=== PATIENT | male | born 1955 | race Two or more races ===

== ENCOUNTER 2017-10-07 15:05 | Inpatient (IN) | payer OTHER ==
[2017-10-07] MEDS ORDERED: MAGNESIUM CITRATE 300 ML BOTTLE PO PRN (18:13)
[2017-10-07] MEDS ORDERED: P-EPHED 60MG/TRIPROLIDI 2.5MG TABLET PO PRN (18:13)
[2017-10-07] MEDS ORDERED: LOPERAMIDE HCL 2 MG CAPSULE PO PRN (18:13)
[2017-10-07] MEDS ORDERED: MENTHOL/PHENOL 1 EACH UD MM PRN (18:13)
[2017-10-07] MEDS ORDERED: MAG HYDROX/AL HYDROX/SIMETH 30 ML UNIT-DOSE CUP PO PRN (18:13)
[2017-10-07] MEDS ORDERED: IBUPROFEN 400 MG TABLET (FP) PO PRN (18:13)
[2017-10-07] MEDS ORDERED: guaiFENesin/D-METHORPHAN HB 10 ML UNIT-DOSE CUPS PO PRN (18:13)
[2017-10-07] MEDS ORDERED: ACETAMINOPHEN 325 MG TABLET (FP) PO PRN (18:13)
[2017-10-07] MEDS ORDERED: MAGNESIUM HYDROX 2400MG/30ML ORAL SUSPENSION 30 ML CUP PO PRN (18:13)
[2017-10-07] MEDS ORDERED: hydrOXYzine PAMOATE 25 MG CAPSULE (FP) PO PRN (18:19)
--- NOTE | 2017-10-07 18:20 | HP ---
[facility] Rehab Assess/Revision - Admission History Admitted to Rehab from: [facility] Date of Admission to Rehab: 10/07/17 - Findings Detox History & Physical reviewed: Yes Concur with findings: Yes Inpatient Rehab Admission - Initial Determination Are CD services needed?: Yes Free of communicable disease: Yes Not in need of hospitalization: Yes - Rehab Admission Criteria Previous failed treatment: Yes Poor recovery environment: Yes Comorbidities: Yes Lacks judgement: Yes Patient is meeting Inpatient Rehab admission criteria:: Yes
[2017-10-07] MEDS ORDERED: INSULIN (NOVOLOG) ASPART 100 UNITS/ML 10ML VIAL SQ ONE (20:57)
[2017-10-07] MEDS: THIAMINE HCL 100 MG TABLET (FP) PO SCH (21:12)
[2017-10-08] MEDS ORDERED: INSULIN SLIDING SCALE (NOVOLOG) 1 VIAL SQ ONE ×2 (06:08→16:58)
[2017-10-08] MEDS: metFORMIN HCL 500 MG TABLET (FP) PO SCH ×2 (06:09→16:56)
[2017-10-08] MEDS: INSULIN SLIDING SCALE (NOVOLOG) 1 VIAL SQ SCH ×2 (06:11→16:59)
[2017-10-08] MEDS: PRENATAL VITAMINS W/ FOLIC ACID TABLET (FP) PO SCH (09:38)
[2017-10-08] MEDS: metoPROLOL SUCCINATE 25 MG TAB.SR.24H (FP) PO SCH (09:38)
--- NOTE | 2017-10-08 11:09 | HP ---
Psychiatrist Admission - Data Date of interview: 10/08/17 Admission source: 3N Identifying data: This is the first 5N inpatient rehabilitation admission for this 61 year old [place]-born male who is ,a father of three,homeless, unemployed and supported on food stamps. Medical History: Hypertension and IDDM Psychiatric History: Patient denies history of treatment, reports he just sad due to his current situation (being homeless and unemployed). Physical/Sexual Abuse/Trauma History: Patient denies history of sexual,physical and verbal abuse. Vital Signs: Vital Signs - 24 hr 10/08/17 10/08/17 00:30 06:44 Temperature 98.3 F Pulse Rate 83 Respiratory 18 20 Rate Blood Pressure 142/92 Allergies/Adverse Reactions: Allergies Allergy/AdvReac Type Severity Reaction Status Date / Time No Known Allergies Allergy Verified 10/03/17 11:11 Concur with the findings of this exam: Yes - Substance Abuse/Tx History Hx Alcohol Use: Yes Hx Substance Use: No Substance Use Type: Alcohol (first ) Mental Status Exam - Mental Status Exam Alert and Oriented to: Time, Place, Person Cognitive Function: Grossly Intact Patient Appearance: Well Groomed Mood: Sad Affect: Appropriate, Mood Congruent Patient Behavior: Appropriate, Cooperative Speech Pattern: Appropriate Voice Loudness: Normal Thought Process: Intact, Goal Oriented Thought Disorder: Not Present Hallucinations: Denies Suicidal Ideation: Denies Homicidal Ideation: Denies Insight/Judgement: Fair Sleep: Fair Appetite: Fair Muscle strength/Tone: Normal Gait/Station: Normal Psychiatric Findings - Problem List ([place] 1, 2,3) (1) Alcohol dependence Current Visit: Yes Status: Acute (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
[2017-10-08] MEDS ORDERED: PNEUMOC 13-VAL CONJ-DIP CRM/PF 0.5 ML DISP.SYRIN IM ONE (12:00)
[2017-10-08] MEDS ORDERED: PNEUMOCOCCAL 23 VACCINE 0.5 ML VIAL IM ONE (12:00)
[2017-10-08] MEDS: MELATONIN 5 MG TABLETS PO PRN (21:12)
[2017-10-08] MEDS: THIAMINE HCL 100 MG TABLET (FP) PO SCH (21:12)
[2017-10-09] MEDS: INSULIN SLIDING SCALE (NOVOLOG) 1 VIAL SQ SCH ×2 (06:36→16:47)
[2017-10-09] MEDS: metFORMIN HCL 500 MG TABLET (FP) PO SCH ×2 (06:36→16:47)
[2017-10-09] MEDS: PRENATAL VITAMINS W/ FOLIC ACID TABLET (FP) PO SCH (09:40)
[2017-10-09] MEDS: metoPROLOL SUCCINATE 25 MG TAB.SR.24H (FP) PO SCH (09:40)
[2017-10-09] MEDS: THIAMINE HCL 100 MG TABLET (FP) PO SCH (21:17)
[2017-10-09] MEDS: MELATONIN 5 MG TABLETS PO PRN (21:18)
[2017-10-10] MEDS: metFORMIN HCL 500 MG TABLET (FP) PO SCH ×2 (06:24→16:46)
[2017-10-10] MEDS: INSULIN SLIDING SCALE (NOVOLOG) 1 VIAL SQ SCH ×2 (06:24→16:47)
[2017-10-10] MEDS: PRENATAL VITAMINS W/ FOLIC ACID TABLET (FP) PO SCH (09:31)
[2017-10-10] MEDS: metoPROLOL SUCCINATE 25 MG TAB.SR.24H (FP) PO SCH (09:31)
[2017-10-10] MEDS: THIAMINE HCL 100 MG TABLET (FP) PO SCH (21:03)
[2017-10-11] MEDS: INSULIN SLIDING SCALE (NOVOLOG) 1 VIAL SQ SCH ×2 (06:15→16:51)
[2017-10-11] MEDS: metFORMIN HCL 500 MG TABLET (FP) PO SCH ×2 (06:15→16:47)
[2017-10-11] MEDS: PRENATAL VITAMINS W/ FOLIC ACID TABLET (FP) PO SCH (09:39)
[2017-10-11] MEDS: metoPROLOL SUCCINATE 25 MG TAB.SR.24H (FP) PO SCH (09:39)
[2017-10-11] MEDS ORDERED: INSULIN SLIDING SCALE (NOVOLOG) 1 VIAL SQ ONE (16:49)
[2017-10-11] MEDS: MELATONIN 5 MG TABLETS PO PRN (21:02)
[2017-10-11] MEDS: THIAMINE HCL 100 MG TABLET (FP) PO SCH (21:02)
[2017-10-12] MEDS: metFORMIN HCL 500 MG TABLET (FP) PO SCH ×2 (06:30→16:38)
[2017-10-12] MEDS: INSULIN SLIDING SCALE (NOVOLOG) 1 VIAL SQ SCH ×2 (06:48→16:38)
[2017-10-12] MEDS ORDERED: INSULIN (NOVOLOG) ASPART 100 UNITS/ML 10ML VIAL ONE (06:51)
[2017-10-12] MEDS: PRENATAL VITAMINS W/ FOLIC ACID TABLET (FP) PO SCH (09:37)
[2017-10-12] MEDS: metoPROLOL SUCCINATE 25 MG TAB.SR.24H (FP) PO SCH (09:37)
[2017-10-12] MEDS: THIAMINE HCL 100 MG TABLET (FP) PO SCH (21:05)
[2017-10-13] MEDS: INSULIN SLIDING SCALE (NOVOLOG) 1 VIAL SQ SCH ×2 (05:59→16:44)
[2017-10-13] MEDS: metFORMIN HCL 500 MG TABLET (FP) PO SCH ×2 (06:00→16:41)
[2017-10-13] MEDS: metoPROLOL SUCCINATE 25 MG TAB.SR.24H (FP) PO SCH (09:25)
[2017-10-13] MEDS: PRENATAL VITAMINS W/ FOLIC ACID TABLET (FP) PO SCH (09:25)
[2017-10-13] MEDS: THIAMINE HCL 100 MG TABLET (FP) PO SCH (21:08)
[2017-10-13] MEDS: MELATONIN 5 MG TABLETS PO PRN (21:09)
[2017-10-14] MEDS: metFORMIN HCL 500 MG TABLET (FP) PO SCH ×2 (06:19→17:49)
[2017-10-14] MEDS: INSULIN SLIDING SCALE (NOVOLOG) 1 VIAL SQ SCH ×2 (07:13→17:05)
[2017-10-14] MEDS: metoPROLOL SUCCINATE 25 MG TAB.SR.24H (FP) PO SCH (09:41)
[2017-10-14] MEDS: PRENATAL VITAMINS W/ FOLIC ACID TABLET (FP) PO SCH (09:41)
[2017-10-14] MEDS ORDERED: INSULIN (NOVOLOG) ASPART 100 UNITS/ML 10ML VIAL ONE (17:03)
[2017-10-14] MEDS: THIAMINE HCL 100 MG TABLET (FP) PO SCH (21:19)
[2017-10-14] MEDS: MELATONIN 5 MG TABLETS PO PRN (21:19)
[2017-10-15] MEDS: INSULIN SLIDING SCALE (NOVOLOG) 1 VIAL SQ SCH ×2 (06:05→16:36)
[2017-10-15] MEDS: metFORMIN HCL 500 MG TABLET (FP) PO SCH ×2 (06:05→16:36)
[2017-10-15] MEDS: PRENATAL VITAMINS W/ FOLIC ACID TABLET (FP) PO SCH (09:34)
[2017-10-15] MEDS: metoPROLOL SUCCINATE 25 MG TAB.SR.24H (FP) PO SCH (09:34)
[2017-10-15] MEDS: THIAMINE HCL 100 MG TABLET (FP) PO SCH (21:08)
[2017-10-15] MEDS: MELATONIN 5 MG TABLETS PO PRN (21:08)
[2017-10-16] MEDS: metFORMIN HCL 500 MG TABLET (FP) PO SCH ×2 (06:24→16:38)
[2017-10-16] MEDS: INSULIN SLIDING SCALE (NOVOLOG) 1 VIAL SQ SCH ×2 (06:25→16:41)
[2017-10-16] MEDS: PRENATAL VITAMINS W/ FOLIC ACID TABLET (FP) PO SCH (09:39)
[2017-10-16] MEDS: metoPROLOL SUCCINATE 25 MG TAB.SR.24H (FP) PO SCH (09:40)
[2017-10-16] MEDS ORDERED: INSULIN SLIDING SCALE (NOVOLOG) 1 VIAL SQ ONE (16:42)
[2017-10-16] MEDS: THIAMINE HCL 100 MG TABLET (FP) PO SCH (21:06)
[2017-10-16] MEDS: MELATONIN 5 MG TABLETS PO PRN (21:06)
[2017-10-17] MEDS: metFORMIN HCL 500 MG TABLET (FP) PO SCH ×2 (05:59→16:37)
[2017-10-17] MEDS: INSULIN SLIDING SCALE (NOVOLOG) 1 VIAL SQ SCH ×2 (05:59→16:40)
[2017-10-17] MEDS ORDERED: INSULIN (NOVOLOG) ASPART 100 UNITS/ML 10ML VIAL ONE (06:08)
[2017-10-17] MEDS: metoPROLOL SUCCINATE 25 MG TAB.SR.24H (FP) PO SCH (09:54)
[2017-10-17] MEDS: PRENATAL VITAMINS W/ FOLIC ACID TABLET (FP) PO SCH (09:54)
[2017-10-17] MEDS ORDERED: INSULIN SLIDING SCALE (NOVOLOG) 1 VIAL SQ ONE (16:40)
[2017-10-17] MEDS: MELATONIN 5 MG TABLETS PO PRN (21:07)
[2017-10-17] MEDS: THIAMINE HCL 100 MG TABLET (FP) PO SCH (21:07)
[2017-10-18] MEDS: metFORMIN HCL 500 MG TABLET (FP) PO SCH ×2 (06:13→16:39)
[2017-10-18] MEDS: INSULIN SLIDING SCALE (NOVOLOG) 1 VIAL SQ SCH ×2 (06:48→16:46)
[2017-10-18] MEDS: metoPROLOL SUCCINATE 25 MG TAB.SR.24H (FP) PO SCH (09:41)
[2017-10-18] MEDS: PRENATAL VITAMINS W/ FOLIC ACID TABLET (FP) PO SCH (09:41)
[2017-10-18] MEDS ORDERED: INSULIN SLIDING SCALE (NOVOLOG) 1 VIAL SQ ONE (16:41)
[2017-10-18] MEDS: MELATONIN 5 MG TABLETS PO PRN (21:10)
[2017-10-18] MEDS: THIAMINE HCL 100 MG TABLET (FP) PO SCH (21:10)
[2017-10-19] MEDS: metFORMIN HCL 500 MG TABLET (FP) PO SCH ×2 (06:08→16:39)
[2017-10-19] MEDS: INSULIN SLIDING SCALE (NOVOLOG) 1 VIAL SQ SCH ×2 (06:49→16:42)
[2017-10-19] MEDS: PRENATAL VITAMINS W/ FOLIC ACID TABLET (FP) PO SCH (09:48)
[2017-10-19] MEDS: metoPROLOL SUCCINATE 25 MG TAB.SR.24H (FP) PO SCH (09:48)
[2017-10-19] MEDS ORDERED: INSULIN (NOVOLOG) ASPART 100 UNITS/ML 10ML VIAL ONE (16:44)
[2017-10-19] MEDS: THIAMINE HCL 100 MG TABLET (FP) PO SCH (21:03)
[2017-10-19] MEDS: MELATONIN 5 MG TABLETS PO PRN (21:03)
[2017-10-20] MEDS: metFORMIN HCL 500 MG TABLET (FP) PO SCH ×2 (06:05→16:38)
[2017-10-20] MEDS: INSULIN SLIDING SCALE (NOVOLOG) 1 VIAL SQ SCH ×2 (07:35→16:44)
[2017-10-20] MEDS: PRENATAL VITAMINS W/ FOLIC ACID TABLET (FP) PO SCH (09:47)
[2017-10-20] MEDS: metoPROLOL SUCCINATE 25 MG TAB.SR.24H (FP) PO SCH (09:48)
[2017-10-20 11:12] VITALS: PULSE 78
[2017-10-20] MEDS ORDERED: INSULIN SLIDING SCALE (NOVOLOG) 1 VIAL SQ ONE (16:40)
[2017-10-20] MEDS: MELATONIN 5 MG TABLETS PO PRN (21:06)
[2017-10-20] MEDS: THIAMINE HCL 100 MG TABLET (FP) PO SCH (21:06)
[2017-10-21] MEDS: metFORMIN HCL 500 MG TABLET (FP) PO SCH (06:18)
[2017-10-21 06:51] VITALS: BP 156/79; TEMP 98.1
[2017-10-21] MEDS: INSULIN SLIDING SCALE (NOVOLOG) 1 VIAL SQ SCH (07:45)
--- NOTE | 2017-10-21 09:38 | PN ---
Psychiatric Progress Note Vital Signs: Vital Signs Period Temp Pulse Resp BP Sys/Nettles Pulse Ox Last 24 Hr 98.1 F 78-78 17-18 149-156/79-94 Date of Session: 10/21/17 Chief Complaint:: discharge visit HPI: HTN, DM medically managed. Current Medications: Active Medications Generic Name Dose Route Start Last Admin Trade Name Freq PRN Reason Stop Dose Admin Acetaminophen 650 mg 10/07/17 18:13 Tylenol - PO Q4H PRN FEVER Al Hydroxide/Mg Hydroxide 30 ml 10/07/17 18:13 Mylanta Oral Suspension - PO Q6H PRN DYSPEPSIA Eucalyptus/Menthol/Phenol/Sorbitol 1 each 10/07/17 18:13 Cepastat Lozenge - MM Q4H PRN SORE THROAT Guaifenesin 10 ml 10/07/17 18:13 Robitussin Dm - PO Q6H PRN COUGH Hydroxyzine Pamoate 25 mg 10/07/17 18:19 Vistaril - PO Q4H PRN AGITATION Ibuprofen 400 mg 10/07/17 18:13 Motrin - PO Q6H PRN Pain Level 4-6 Insulin Aspart 1 vial 10/08/17 07:00 10/21/17 07:45 Novolog Vial Sliding Scale - SQ 4 units BIDAC TASHA Administration Protocol Loperamide HCl 4 mg 10/07/17 18:13 Imodium - PO Q6H PRN DIARRHEA Magnesium Citrate 300 ml 10/07/17 18:13 Citroma - PO Q48H PRN CONSTIPATION Magnesium Hydroxide 30 ml 10/07/17 18:13 Milk Of Magnesia - PO DAILY PRN CONSTIPATION Melatonin 5 mg 10/07/17 22:00 10/20/17 21:06 Melatonin PO 5 mg HS PRN Administration INSOMNIA Metformin HCl 1,000 mg 10/08/17 07:00 10/21/17 06:18 Glucophage - PO 1,000 mg BIDAC TASHA Administration Metoprolol Succinate 25 mg 10/08/17 10:00 10/20/17 09:48 Toprol Xl - PO 25 mg DAILY TASHA Administration Multivit/Folic Acid/Iron 1 tab 10/08/17 10:00 10/20/17 09:47 Vitamins (Sjr) - PO 1 tab DAILY TASHA Administration Pseudoephedrine/Triprolidine 1 combo 10/07/17 18:13 Actifed - PO TID PRN NASAL CONGESTION Thiamine HCl 100 mg 10/07/17 22:00 10/20/17 21:06 Vitamin B1 - PO 100 mg HS TASHA Administration Current Side Effect: No Lab tests ordered: No Lab tests reviewed: Yes Provider note:: Patient has completed treatment today and met his identified goals, will continue to address his issues at [facility]. He gained insights into his addiction and motivated to continue maintain abstinence and stay away from "people, places and things". . Patient was encouraged to utilize supports available to prevent relapses, patient is stable for discharge today. Total face to face time:: 15 Mental Status Exam - Mental Status Exam Alert and Oriented to: Time, Place, Person Cognitive Function: Good Patient Appearance: Well Groomed Mood: Hopeful Affect: Appropriate, Mood Congruent Patient Behavior: Appropriate, Cooperative Speech Pattern: Clear, Appropriate Voice Loudness: Normal Thought Process: Intact, Goal Oriented Thought Disorder: Not Present Hallucinations: Denies Suicidal Ideation: Denies Homicidal Ideation: Denies Insight/Judgement: Fair Sleep: Fair Appetite: Fair Muscle strength/Tone: Normal Gait/Station: Normal Psychiatric Treatment Plan - Problem List (1) Alcohol dependence Current Visit: Yes (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
[2017-10-21] MEDS: metoPROLOL SUCCINATE 25 MG TAB.SR.24H (FP) PO SCH (09:47)
[2017-10-21] MEDS: PRENATAL VITAMINS W/ FOLIC ACID TABLET (FP) PO SCH (09:47)
== END 2017-10-21 11:05 | disposition home or self-care (01) | DRG 772 ==
LOC: YASAS 15:05 → Y5N 15:07
PROVIDERS: ADMIT Psychiatry & Neurology Psychiatry; ATTEND Psychiatry & Neurology Psychiatry
PROC: HZ42ZZZ Group Counseling for Substance Abuse Treatment, Cognitive-Behavioral (ICD-10-PCS; principal; 2017-10-07)
DX: F10.24 Alcohol dependence with alcohol-induced mood disorder (principal); I10 Essential (primary) hypertension; E11.9 Type 2 diabetes mellitus without complications; Z79.4 Long term (current) use of insulin; Z79.84 Long term (current) use of oral hypoglycemic drugs
CPT/HCPCS: 82962; 90732; G0009

== ENCOUNTER 2024-10-29 21:24 | Inpatient (IN) | payer OTHER ==
[2024-10-29 22:08] VITALS: BMI 29.7
[2024-10-29] MEDS ORDERED: BISMUTH SUBSALICYLATE 524 MG/30 ML PO PRN (23:51)
[2024-10-29] MEDS ORDERED: IBUPROFEN 400 MG TABLET (FP) PO PRN (23:51)
[2024-10-29] MEDS ORDERED: BENZOCAINE/MENTHOL (CHLORASEPTIC ) LOZENGE MM PRN (23:51)
[2024-10-29] MEDS ORDERED: ACETAMINOPHEN 325 MG TABLET (FP) PO PRN (23:51)
[2024-10-29] MEDS ORDERED: NALOXONE (NARCAN) HCL 4 MG/0.1 ML SPRAY NS PRN (23:51)
[2024-10-29] MEDS ORDERED: DICYCLOMINE HCL 10 MG CAPSULE PO PRN (23:51)
[2024-10-29] MEDS ORDERED: ONDANSETRON *ODT* 4 MG TABLET SL PRN (23:51)
[2024-10-29] MEDS ORDERED: guaiFENesin 600 MG TABLET.ER (FP) PO PRN (23:51)
[2024-10-29] MEDS ORDERED: POLYETHYLENE GLYCOL (HEALTHYLAX) 3350 17 GM PACKET PO PRN (23:51)
[2024-10-29] MEDS ORDERED: MAG HYDROX/AL HYDROX/SIMETH 30 ML UNIT-DOSE CUP PO PRN (23:51)
[2024-10-29] MEDS ORDERED: MAGNESIUM HYDROX 2400MG/30ML ORAL SUSPENSION 30 ML CUP PO PRN (23:51)
[2024-10-29] MEDS ORDERED: LOPERAMIDE HCL 2 MG CAPSULE PO PRN (23:51)
[2024-10-29] MEDS ORDERED: BENZONATATE 200 MG CAPSULE PO PRN (23:51)
[2024-10-30] MEDS: INSULIN ASPART SLIDING SCALE (NOVOLOG) 1 VIAL SQ ONE (01:13)
[2024-10-30] MEDS: IBUPROFEN 600 MG TABLET (FP) PO PRN (01:37)
[2024-10-30] MEDS: METHOCARBAMOL 500 MG TABLET PO PRN (01:38)
[2024-10-30] MEDS: hydrOXYzine PAMOATE 25 MG CAPSULE (FP) PO PRN (01:38)
[2024-10-30] MEDS: INSULIN ASPART SLIDING SCALE (NOVOLOG) 1 VIAL SQ SCH (06:26)
[2024-10-30] MEDS ORDERED: LORazepam 1 MG TABLET PO PRN (08:18)
[2024-10-30] MEDS: levETIRAcetam 500 MG TABLET (FP) PO SCH (10:13)
[2024-10-30] MEDS: metoPROLOL SUCCINATE 25 MG TAB.SR.24H (FP) PO SCH (10:13)
[2024-10-30] MEDS: PRENATAL VITAMINS W/ FOLIC ACID TABLET (FP) PO SCH (10:14)
[2024-10-30] MEDS: metFORMIN HCL 500 MG TABLET (FP) PO SCH (10:14)
[2024-10-30] MEDS: LORazepam 2 MG TABLET PO SCH (10:14)
[2024-10-30] MEDS: HYDROCHLOROTHIAZIDE 25 MG TABLET (FP) PO SCH (12:15)
[2024-10-30] MEDS: amLODIPine BESYLATE 10 MG TABLET (FP) PO SCH (12:15)
[2024-10-30] MEDS: NALTREXONE HCL 50 MG TABLET PO ONE (12:17)
[2024-10-30 12:38] LABS: CHLORIDE 103 mmol/L (98-107); POTASSIUM 4.4 mmol/L (3.5-5.1); SODIUM 140 mmol/L (136-145)
[2024-10-30 12:51] LABS: CALCIUM 9.1 mg/dL (8.5-10.1)
[2024-10-30 12:55] LABS: ALBUMIN 3.6 g/dl (3.4-5.0); ANION GAP 8 mmol/L (4-13); BLOOD UREA NITROGEN 13.4 mg/dL (7-18); CO2 29 mmol/L (21-32); GLUCOSE,RANDOM 168 mg/dL (74-106)
[2024-10-30 12:58] LABS: SGPT/ALT 40 U/L (13-61)
[2024-10-30 12:59] LABS: ALK PHOS 81 U/L (45-117); BILIRUBIN,TOTAL 0.8 mg/dL (0.2-1); CREATININE 1.3 mg/dL (0.55-1.3); SGOT/AST 57 U/L (15-37)
[2024-10-30 13:00] LABS: TOT PROT 6.8 g/dl (6.4-8.2)
[2024-10-30 13:39] LABS: HEMOGLOBIN 13.1 g/dL (13.7-17.5); MCHC 33.6 g/dl (32.3-36.5); MEAN CELL VOLUME 83.5 fl (79.0-92.2); MEAN PLT VOLUME 9.7 fl (9.4-12.4); PLATELET COUNT 253 x10^3/uL (163-337); RDW 14.5 % (12.2-16.4)
[2024-10-30] MEDS: MELATONIN 5 MG TABLETS PO SCH (22:45)
[2024-10-30] MEDS: THIAMINE 100 MG TABLET PO SCH (22:45)
[2024-10-31] MEDS: NALTREXONE HCL 50 MG TABLET PO SCH (10:31)
[2024-11-01] MEDS: LORazepam 1 MG TABLET PO SCH (05:45)
[2024-11-02] MEDS ORDERED: LORazepam 0.5 MG TABLET PO PRN
[2024-11-02] MEDS: LORazepam 0.5 MG TABLET PO SCH (05:40)
[2024-11-03] MEDS: LORazepam 0.5 MG TABLET PO ONE (05:48)
[2024-11-03] MEDS ORDERED: INSULIN ASPART SLIDING SCALE (NOVOLOG) 1 VIAL SQ ONE (07:34)
[2024-11-03 08:58] VITALS: BP 152/100; PULSE 103; RESP 20; TEMP 97.5
== END 2024-11-03 13:32 | disposition other institution (70) | DRG 775 ==
LOC: YASAS 21:24 → Y3N 10-30 00:50
PROVIDERS: ADMIT Allergy & Immunology; ATTEND Allergy & Immunology
PROC: HZ2ZZZZ Detoxification Services for Substance Abuse Treatment (ICD-10-PCS; principal; 2024-10-30)
DX: F10.230 Alcohol dependence with withdrawal, uncomplicated (principal); I10 Essential (primary) hypertension; E11.9 Type 2 diabetes mellitus without complications; Z79.84 Long term (current) use of oral hypoglycemic drugs; Z59.00 Homelessness unspecified; Z56.0 Unemployment, unspecified
CPT/HCPCS: 36415; 80053; 80305; 80307; 82962; 85027; 86593; 86780; 87811; 93005; 93010

== ENCOUNTER 2024-11-03 13:54 | Inpatient (IN) | payer OTHER ==
[2024-11-03] MEDS ORDERED: LOPERAMIDE HCL 2 MG CAPSULE PO PRN (16:35)
[2024-11-03] MEDS ORDERED: NALOXONE HCL 0.4 MG/ML VIAL IVPUSH PRN (16:35)
[2024-11-03] MEDS ORDERED: guaiFENesin 600 MG TABLET.ER (FP) PO PRN (16:35)
[2024-11-03] MEDS ORDERED: BENZOCAINE/MENTHOL (CHLORASEPTIC ) LOZENGE MM PRN (16:35)
[2024-11-03] MEDS ORDERED: NALOXONE (NARCAN) HCL 4 MG/0.1 ML SPRAY NS PRN (16:35)
[2024-11-03] MEDS ORDERED: IBUPROFEN 400 MG TABLET (FP) PO PRN (16:35)
[2024-11-03] MEDS ORDERED: ACETAMINOPHEN 325 MG TABLET (FP) PO PRN (16:35)
[2024-11-03] MEDS ORDERED: BENZONATATE 200 MG CAPSULE PO PRN (16:35)
[2024-11-03] MEDS: INSULIN ASPART SLIDING SCALE (NOVOLOG) 1 VIAL SQ SCH (17:13)
[2024-11-03] MEDS: metFORMIN HCL 500 MG TABLET (FP) PO SCH (17:14)
[2024-11-03] MEDS: hydrOXYzine PAMOATE 25 MG CAPSULE (FP) PO PRN (17:30)
[2024-11-03] MEDS: MELATONIN 5 MG TABLETS PO SCH (21:10)
[2024-11-03] MEDS: levETIRAcetam 500 MG TABLET (FP) PO SCH (21:13)
[2024-11-03] MEDS: THIAMINE 100 MG TABLET PO SCH (21:13)
[2024-11-04] MEDS: MAG HYDROX/AL HYDROX/SIMETH 30 ML UNIT-DOSE CUP PO PRN (06:03)
[2024-11-04] MEDS ORDERED: INSULIN ASPART SLIDING SCALE (NOVOLOG) 1 VIAL SQ SCH (07:00)
[2024-11-04] MEDS: PRENATAL VITAMINS W/ FOLIC ACID TABLET (FP) PO SCH (09:57)
[2024-11-04] MEDS: HYDROCHLOROTHIAZIDE 25 MG TABLET (FP) PO SCH (09:57)
[2024-11-04] MEDS: NALTREXONE HCL 50 MG TABLET PO SCH (09:58)
[2024-11-04] MEDS: amLODIPine BESYLATE 10 MG TABLET (FP) PO SCH (09:58)
[2024-11-04] MEDS: metoPROLOL SUCCINATE 25 MG TAB.SR.24H (FP) PO SCH (09:58)
[2024-11-05] MEDS: POLYETHYLENE GLYCOL (HEALTHYLAX) 3350 17 GM PACKET PO PRN (06:06)
[2024-11-05] MEDS ORDERED: INSULIN ASPART SLIDING SCALE (NOVOLOG) 1 VIAL SQ ONE (06:39)
[2024-11-07] MEDS ORDERED: INSULIN ASPART SLIDING SCALE (NOVOLOG) 1 VIAL SQ ONE (11:33)
[2024-11-09] MEDS ORDERED: INSULIN ASPART SLIDING SCALE (NOVOLOG) 1 VIAL SQ ONE (05:59)
[2024-11-13] MEDS ORDERED: INSULIN ASPART SLIDING SCALE (NOVOLOG) 1 VIAL SQ ONE (07:20)
[2024-11-13] MEDS: IBUPROFEN 600 MG TABLET (FP) PO PRN (09:48)
[2024-11-13] MEDS: levETIRAcetam 250 MG TABLET PO SCH (13:55)
[2024-11-13] MEDS: INSULIN GLARGINE (LANTUS) 100 UNITS/ML UNITS SQ SCH (21:02)
[2024-11-17] MEDS: levETIRAcetam 250 MG TABLET PO SCH (06:15)
[2024-11-17] MEDS ORDERED: INSULIN ASPART SLIDING SCALE (NOVOLOG) 1 VIAL SQ ONE (06:17)
[2024-11-19] MEDS ORDERED: INSULIN ASPART SLIDING SCALE (NOVOLOG) 1 VIAL SQ ONE (12:05)
[2024-11-20] MEDS: levETIRAcetam 250 MG TABLET PO SCH (10:09)
[2024-11-21] MEDS ORDERED: INSULIN ASPART SLIDING SCALE (NOVOLOG) 1 VIAL SQ ONE (06:52)
[2024-11-22] MEDS ORDERED: INSULIN ASPART SLIDING SCALE (NOVOLOG) 1 VIAL SQ ONE (06:49)
[2024-11-22] MEDS: MAGNESIUM HYDROX 2400MG/30ML ORAL SUSPENSION 30 ML CUP PO PRN (14:15)
[2024-11-23] MEDS ORDERED: INSULIN ASPART SLIDING SCALE (NOVOLOG) 1 VIAL SQ ONE (06:07)
[2024-11-23] MEDS: NALTREXONE MICROSPHERES (VIVITROL) 380 MG DISP.SYRIN IM ONE (12:00)
[2024-11-23] MEDS: NALTREXONE HCL 50 MG TABLET PO SCH (13:49)
[2024-11-24] MEDS ORDERED: INSULIN ASPART SLIDING SCALE (NOVOLOG) 1 VIAL SQ ONE (06:06)
[2024-11-25] MEDS ORDERED: INSULIN ASPART SLIDING SCALE (NOVOLOG) 1 VIAL SQ ONE ×2 (06:05→16:26)
[2024-11-26] MEDS ORDERED: INSULIN ASPART SLIDING SCALE (NOVOLOG) 1 VIAL SQ ONE (06:07)
[2024-11-27] MEDS ORDERED: INSULIN ASPART SLIDING SCALE (NOVOLOG) 1 VIAL SQ ONE ×2 (06:58→16:39)
[2024-11-28 05:19] VITALS: TEMP 97.5
[2024-11-28 08:54] VITALS: BP 156/85; PULSE 98; RESP 20
== END 2024-11-28 09:44 | disposition home or self-care (01) | DRG 772 ==
LOC: YASAS 13:54 → Y3W 13:55
PROVIDERS: ADMIT Psychiatry & Neurology Pain Medicine; ATTEND Psychiatry & Neurology Pain Medicine
PROC: HZ42ZZZ Group Counseling for Substance Abuse Treatment, Cognitive-Behavioral (ICD-10-PCS; principal; 2024-11-03)
DX: F10.20 Alcohol dependence, uncomplicated (principal); F19.24 Other psychoactive substance dependence with psychoactive substance-induced mood disorder; F41.9 Anxiety disorder, unspecified; F32.A Depression, unspecified; I10 Essential (primary) hypertension; E11.59 Type 2 diabetes mellitus with other circulatory complications; Z79.4 Long term (current) use of insulin; Z79.84 Long term (current) use of oral hypoglycemic drugs; Z56.0 Unemployment, unspecified; Z59.00 Homelessness unspecified
CPT/HCPCS: 82962